=== PATIENT | male | born 1990 | race Caucasian/White ===

== ENCOUNTER → 2025-02-17 11:36 | Outpatient (REF) | payer BC, SELFPAY | LOC: RCS 11:36 | PROVIDERS: ATTENDING PHYSICIAN Internal Medicine Pulmonary Disease | DX: E78.5 Hyperlipidemia, unspecified (principal); E55.9 Vitamin D deficiency, unspecified; R42 Dizziness and giddiness; G47.33 Obstructive sleep apnea (adult) (pediatric) | CPT/HCPCS: 93005 ==